=== PATIENT | male | born 1985 | race Caucasian/White ===

== ENCOUNTER 2022-12-01 15:36 | Inpatient (IN) | payer MEDICAID ==
[~2022-12-01] VITALS: Ht 162.6 cm; Wt 85.7 kg
[2022-12-01] MEDS ORDERED: NITROGLYCERIN 0.4MG TABLET SL SL PRN (16:45)
[2022-12-01 17:19] LABS: BASOPHILS % 0.2 % (0.0-2.0); EOSINOPHILS % 0.3 % (0.0-5.0); LYMPHOCYTES % 17.7 % (20.0-50.0); MEAN CORPUSCULAR HEMOGLOBIN 31.7 pg (28.0-32.0); MEAN CORPUSCULAR VOLUME 91.4 fL (80.0-94.0); MEAN PLATELET VOLUME 11.2 fl (7.4-10.4); MONOCYTES % 5.3 % (2.0-8.0); NEUTROPHILS % 76.5 % (40.0-76.0); PLATELET 142 x1000/uL (130-400); RED BLOOD CELL COUNT 5.37 mill/uL (4.7-6.1); RED CELL DISTRIBUTION WIDTH 12.6 % (11.6-14.6)
[2022-12-01 17:25] LABS: CHLORIDE 101 mEq/L (98-107)
[2022-12-01 17:30] LABS: D-DIMER < 0.19 mg/L FEU (<0.50); PARTIAL THROMBOPLASTIN TIME 24.8 sec (23.4-31.0); PROTHROMBIN TIME 10.9 sec (9.6-11.0)
[2022-12-01] MEDS ORDERED: IOHEXOL-350 100 ML BOTTLE ONE (20:27)
[2022-12-01] MEDS ORDERED: ACETAMINOPHEN 325MG TABLET PO ONE (20:45)
[2022-12-01] MEDS ORDERED: ASPIRIN 325MG EC TABLET PO ONE (20:45)
[2022-12-02] MEDS ORDERED: LORAZEPAM 2MG/ML CPJ IV PRN (05:15)
[2022-12-02] MEDS ORDERED: ACETAMINOPHEN 325MG TABLET PO PRN ×2 (05:15)
[2022-12-02] MEDS ORDERED: ONDANSETRON HCL 4MG/2ML INJ IV PRN (05:15)
[2022-12-02] MEDS ORDERED: IPRATROPIUM/ALBUTEROL 0.5-3(2.5)MG/3ML NEB HHN PRN (05:15)
[2022-12-02] MEDS ORDERED: DOCUSATE SODIUM 100MG CAPSULE PO PRN (05:15)
[2022-12-02] MEDS ORDERED: CLONIDINE 0.1MG TABLET PO PRN (05:15)
[2022-12-02] MEDS ORDERED: FOLIC ACID 1 MG, THIAMINE HCL 100 MG, MVI, ADULT NO.1 10 ML in DEXTROSE 5% WATER 1,000 ML IV NR ×4 (05:30)
[2022-12-02] MEDS ORDERED: DEXTROSE 50% WATER 50ML SYRINGE IV PRN ×2 (05:45→12:15)
[2022-12-02] MEDS: BLOOD SUGAR DIAGNOSTIC STRIP TEST SCH ×5 (06:59→21:00)
[2022-12-02] MEDS ORDERED: INSULIN LISPRO 100 UNITS/ML SUBCUT SCH (07:00)
[2022-12-02 08:17] LABS: BASOPHILS % 0.3 % (0.0-2.0); EOSINOPHILS % 2.3 % (0.0-5.0); HEMATOCRIT. 47.3 % (42.0-52.0); HEMOGLOBIN. 16.5 g/dL (14.0-18.0); MEAN CORPUSCULAR HEMOGLOBIN 31.6 pg (28.0-32.0); MEAN CORPUSCULAR VOLUME 90.9 fL (80.0-94.0); MEAN PLATELET VOLUME 11.1 fl (7.4-10.4); MONOCYTES % 7.9 % (2.0-8.0); NEUTROPHILS % 50.5 % (40.0-76.0); PLATELET 140 x1000/uL (130-400); RED BLOOD CELL COUNT 5.21 mill/uL (4.7-6.1); RED CELL DISTRIBUTION WIDTH 12.5 % (11.6-14.6)
[2022-12-02 09:04] LABS: CHLORIDE 104 mEq/L (98-107)
[2022-12-02] MEDS: ENOXAPARIN 40MG/0.4ML SYR SUBCUT SCH (10:09)
[2022-12-02] MEDS: LISINOPRIL 5MG TABLET PO SCH (10:10)
[2022-12-02 11:00] VITALS: BP 128/88
[2022-12-02 12:00] VITALS: BP 128/88
[2022-12-02] MEDS ORDERED: BLOOD SUGAR DIAGNOSTIC STRIP TEST SCH (12:20)
[2022-12-02 12:25] LABS: T4 FREE 1.15 ng/dL (0.76-1.46)
[2022-12-02] MEDS: INSULIN LISPRO 100 UNITS/ML SUBCUT SCH ×6 (12:54→22:35)
[2022-12-02 16:00] VITALS: BP 114/68
[2022-12-02 16:12] LABS: CLARITY URINE CLEAR (CLEAR); COLOR URINE YELLOW (YELLOW); KETONES URINE 1+ (NEGATIVE); LEUKOCYTE ESTERASE URINE NEGATIVE (NEGATIVE); NITRITE URINE NEGATIVE (NEGATIVE); OCCULT BLOOD URINE NEGATIVE (NEGATIVE); PH URINE 6.5 (4.5-8.0); PROTEIN URINE NEGATIVE (NEGATIVE); SPECIFIC GRAVITY URINE 1.051 (1.005-1.030); UROBILINOGEN URINE 0.2 E.U./dL (0.2-1.0)
[2022-12-02 16:37] LABS: *AMPHETAMINES SCREEN URINE NEGATIVE (NEGATIVE); *BARBITURATES SCREEN URINE NEGATIVE (NEGATIVE); *BENZODIAZEPINES SCREEN URINE NEGATIVE (NEGATIVE); *COCAINE SCREEN URINE NEGATIVE (NEGATIVE); CANNABINOID URINE SCREEN NEGATIVE (NEGATIVE); METHADONE URINE SCREEN NEGATIVE (NEGATIVE); OPIATES URINE SCREEN NEGATIVE (NEGATIVE); PHENCYCLIDINE URINE SCREEN NEGATIVE (NEGATIVE)
[2022-12-02 20:00] VITALS: BP 122/88
[2022-12-02] MEDS ORDERED: INSULIN GLARGINE 100 UNITS/ML SUBCUT SCH (22:00)
[2022-12-02] MEDS: FAMOTIDINE 20MG TABLET PO SCH (22:13)
[2022-12-02] MEDS: ATORVASTATIN CALCIUM 40MG TABLET PO SCH (22:14)
[2022-12-03] VITALS: BP 107/72
[2022-12-03 04:00] VITALS: BP 100/59
[2022-12-03] MEDS: BLOOD SUGAR DIAGNOSTIC STRIP TEST SCH ×4 (07:00→20:51)
[2022-12-03 07:05] LABS: BASOPHILS % 0.3 % (0.0-2.0); EOSINOPHILS % 1.9 % (0.0-5.0); HEMATOCRIT. 46.8 % (42.0-52.0); HEMOGLOBIN. 16.5 g/dL (14.0-18.0); LYMPHOCYTES % 40.1 % (20.0-50.0); MEAN CORPUSCULAR HEMOGLOBIN 32.2 pg (28.0-32.0); MEAN CORPUSCULAR VOLUME 91.6 fL (80.0-94.0); MEAN PLATELET VOLUME 11.1 fl (7.4-10.4); MONOCYTES % 8.1 % (2.0-8.0); NEUTROPHILS % 49.6 % (40.0-76.0); PLATELET 143 x1000/uL (130-400); RED BLOOD CELL COUNT 5.11 mill/uL (4.7-6.1); RED CELL DISTRIBUTION WIDTH 12.6 % (11.6-14.6)
[2022-12-03] MEDS: INSULIN LISPRO 100 UNITS/ML SUBCUT SCH ×8 (07:20→21:15)
[2022-12-03 07:28] LABS: CHLORIDE 105 mEq/L (98-107)
[2022-12-03 08:00] VITALS: BP 105/80
[2022-12-03] MEDS: ENOXAPARIN 40MG/0.4ML SYR SUBCUT SCH (08:41)
[2022-12-03] MEDS: LISINOPRIL 5MG TABLET PO SCH (08:44)
[2022-12-03] MEDS: DOXYCYCLINE HYCLATE 100MG CAPSULE PO SCH ×2 (08:44→18:32)
[2022-12-03] MEDS ORDERED: CEFTRIAXONE SODIUM 1 G/VIAL IM NR (09:00)
[2022-12-03 12:00] VITALS: BP 108/70
[2022-12-03 16:00] VITALS: BP 112/71
[2022-12-03 20:00] VITALS: BP 122/78
[2022-12-03] MEDS: ATORVASTATIN CALCIUM 40MG TABLET PO SCH (21:08)
[2022-12-03] MEDS: FAMOTIDINE 20MG TABLET PO SCH (21:08)
[2022-12-03] MEDS ORDERED: INSULIN GLARGINE 100 UNITS/ML SUBCUT SCH (22:00)
[2022-12-04] VITALS: BP 106/62
[2022-12-04 04:00] VITALS: BP 98/62
[2022-12-04] MEDS: BLOOD SUGAR DIAGNOSTIC STRIP TEST SCH ×2 (06:22→12:20)
[2022-12-04 06:51] LABS: BASOPHILS % 0.3 % (0.0-2.0); EOSINOPHILS % 0.2 % (0.0-5.0); HEMATOCRIT. 46.9 % (42.0-52.0); HEMOGLOBIN. 16.4 g/dL (14.0-18.0); LYMPHOCYTES % 19.5 % (20.0-50.0); MEAN CORPUSCULAR VOLUME 91.8 fL (80.0-94.0); MEAN PLATELET VOLUME 11.2 fl (7.4-10.4); PLATELET 145 x1000/uL (130-400); RED CELL DISTRIBUTION WIDTH 12.6 % (11.6-14.6)
[2022-12-04 06:56] LABS: CHLORIDE 105 mEq/L (98-107)
[2022-12-04 08:00] VITALS: BP 110/71
[2022-12-04 08:07] LABS: *CREATININE RANDOM URINE 53.4 mg/dL (Not Estab.); MICROALBUMIN RANDOM URINE 10.4 ug/mL (Not Estab.)
[2022-12-04] MEDS: ENOXAPARIN 40MG/0.4ML SYR SUBCUT SCH (08:39)
[2022-12-04] MEDS: DOXYCYCLINE HYCLATE 100MG CAPSULE PO SCH (08:39)
[2022-12-04] MEDS: INSULIN LISPRO 100 UNITS/ML SUBCUT SCH (08:39)
[2022-12-04] MEDS: LISINOPRIL 5MG TABLET PO SCH (08:40)
[2022-12-04] MEDS ORDERED: AZITHROMYCIN 500 MG TABLET PO NR (09:45)
[2022-12-04] MEDS ORDERED: LIP40 PO (09:55)
[2022-12-04] MEDS ORDERED: LISI-186 PO (09:55)
[2022-12-04] MEDS ORDERED: LANTUSUD SUBCUT (09:55)
[2022-12-04] MEDS ORDERED: INSLIS SUBCUT (09:55)
[2022-12-04] MEDS ORDERED: FAMO20TA8 PO (09:55)
[2022-12-04 12:00] VITALS: BP 116/79
[2022-12-04 15:20] VITALS: BP 112/74
[2022-12-06 00:03] LABS: HEPATITIS B SURFACE ANTIGEN NEGATIVE
== END 2022-12-04 17:49 | disposition home or self-care (01) | DRG 203 ==
LOC: ER 15:44 → EDBEDREQ 20:50 → EDBEDREQTM 20:50 → MICUSO 21:49 → EDBEDREQ 22:04 → EDBEDREQTM 22:04 → 6EST 12-02 11:25 → 5WST 12-04 10:30 → 6EST 12-04 11:14
PROVIDERS: ADMIT Internal Medicine; ATTEND Internal Medicine
DX: M94.0 Chondrocostal junction syndrome [Tietze] (principal); E87.1 Hypo-osmolality and hyponatremia; E11.9 Type 2 diabetes mellitus without complications; I16.0 Hypertensive urgency; E78.1 Pure hyperglyceridemia; N34.2 Other urethritis; I10 Essential (primary) hypertension; E78.00 Pure hypercholesterolemia, unspecified; I16.1 Hypertensive emergency; E78.5 Hyperlipidemia, unspecified; N48.89 Other specified disorders of penis; F12.90 Cannabis use, unspecified, uncomplicated; F10.10 Alcohol abuse, uncomplicated; Z79.4 Long term (current) use of insulin; Z79.899 Other long term (current) drug therapy; Z91.14 Patient's other noncompliance with medication regimen; Z91.199 Patient's noncompliance with other medical treatment and regimen due to unspecified reason; Z83.3 Family history of diabetes mellitus; Z82.49 Family history of ischemic heart disease and other diseases of the circulatory system
CPT/HCPCS: 36415; 71045; 71275; 74174; 80048; 80053; 80061; 80305; 81003; 82043; 82570; 82962; 83036; 83880; 84439; 84443; 84484; 85025; 85379; 86705; 86709; 86803; 87077; 87340; 87491; 87591; 93005; 93306; 93970; 99285; J0696; J1650; J1815; J3411; J3490; J7070; Q9967